=== PATIENT | male | born 1960 | race African-American/Black ===

== ENCOUNTER 2021-04-18 15:47 | Emergency (ER) | payer OTHER ==
[~2021-04-18] VITALS: Ht 182.9 cm; Wt 111.1 kg
[~2021-04-18 15:47] MED LIST: AMBIEN 10 MG TA10 MG PO; AMLODIPINE BESYL5 MG; FLAGYL500 MG; FLAGYL500 MG PO; HYDROCODON-ACE1 EAC7 PO; LEVAQUIN 750 M750 MG; LOPRESSOR 50 MG50 M1; NORVASC 5 MG TAB5 MG PO; OMEPRAZOLE 20 M20 M1 PO; PRILOSEC 10MG C10 M1 PO
[2021-04-18 15:53] VITALS: BP 158/97
[2021-04-18 16:08] LABS: URINE BILIRUBIN NEGATIVE (Negative); URINE BLOOD 3+ (Negative); URINE CLARITY CLEAR; URINE COLOR YELLOW; URINE GLUCOSE-RANDOM* NEGATIVE (Negative); URINE KETONES NEGATIVE (Negative); URINE LEUKOCYTES-REFLEX NEGATIVE (Negative); URINE NITRITE-REFLEX NEGATIVE (Negative); URINE PROTEIN (DIPSTICK) NEGATIVE (Negative); URINE SPECIFIC GRAVITY 1.025 (1.005-1.035); URINE UROBILINOGEN 0.2 E.U./dl (0.2-1.0)
[2021-04-18] MEDS ORDERED: FLOMAX0.4 MG PO ×2 (16:09→17:09)
[2021-04-18] MEDS ORDERED: FLEXERIL PO (16:09)
[2021-04-18 16:16] LABS: SQUAMOUS 0-3 Few /LPF (0-3)
[2021-04-18 16:17] LABS: BACTERIA-REFLEX 1-9 Few /HPF (None Seen); CASTS None Seen /LPF (None Seen); CRYSTALS None Seen /LPF (None Seen); MUCUS 0-3 Light strn/LPF (None Seen); URINE RBC >20 Many /HPF (NONE SEEN); URINE WBC-REFLEX 0-5 Rare /HPF (0-5)
== END 2021-04-18 17:10 | disposition home or self-care (01) ==
LOC: ER 15:47
PROVIDERS: Nurse Practitioner
DX: R31.9 Hematuria, unspecified (principal); I10 Essential (primary) hypertension; K21.9 Gastro-esophageal reflux disease without esophagitis; Z79.891 Long term (current) use of opiate analgesic; Z79.899 Other long term (current) drug therapy; Z88.8 Allergy status to other drugs, medicaments and biological substances

== ENCOUNTER 2021-05-29 09:00 | Emergency (ER) | payer OTHER ==
[~2021-05-29] VITALS: Ht 182.9 cm; Wt 106.6 kg
[~2021-05-29 09:00] MED LIST changes: +FLEXERIL PO; +FLOMAX0.4 MG PO
[2021-05-29] MEDS ORDERED: NAPROSYN500 MG PO (10:13)
[2021-05-29 10:44] VITALS: BP 156/73
== END 2021-05-29 10:51 | disposition home or self-care (01) ==
LOC: ER 09:00
DX: S93.491A Sprain of other ligament of right ankle, initial encounter (principal); I10 Essential (primary) hypertension; K21.9 Gastro-esophageal reflux disease without esophagitis; Z79.899 Other long term (current) drug therapy; W11.XXXA Fall on and from ladder, initial encounter; Y93.89 Activity, other specified; Y92.89 Other specified places as the place of occurrence of the external cause; Y99.8 Other external cause status